=== PATIENT | female | born 1985 | race Caucasian/White ===

== ENCOUNTER 2019-02-02 19:24 | Observation (INO) | payer MEDICAID ==
[~2019-02-02] VITALS: Ht 152.4 cm; Wt 68.0 kg
[2019-02-02] MEDS ORDERED: LACTATED RINGERS 1,000 ML IV NR ×2 (20:01→20:30)
[2019-02-02 20:18] LABS: CLARITY URINE CLOUDY (CLEAR); COLOR URINE YELLOW (YELLOW); KETONES URINE NEGATIVE (NEGATIVE); LEUKOCYTE ESTERASE URINE TRACE (NEGATIVE); NITRITE URINE NEGATIVE (NEGATIVE); OCCULT BLOOD URINE NEGATIVE (NEGATIVE); PH URINE 5.5 (4.5-8.0); PROTEIN URINE TRACE (NEGATIVE); SPECIFIC GRAVITY URINE 1.028 (1.005-1.030); UROBILINOGEN URINE 0.2 E.U./dL (0.2-1.0)
[2019-02-02 22:11] LABS: BASOPHILS % 0.3 % (0.0-2.0); EOSINOPHILS % 1.5 % (0.0-5.0); HEMOGLOBIN. 10.5 g/dL (12.0-16.0); LYMPHOCYTES % 20.7 % (20.0-50.0); MEAN CORPUSCULAR HEMOGLOBIN 28.7 pg (28.0-32.0); MEAN CORPUSCULAR VOLUME 87.7 fL (81.0-99.0); MEAN PLATELET VOLUME 7.3 fl (7.4-10.4); MONOCYTES % 7.3 % (2.0-8.0); NEUTROPHILS % 70.2 % (40.0-76.0); PLATELET 338 x1000/uL (130-400); RED BLOOD CELL COUNT 3.64 mill/uL (4.2-5.4); RED CELL DISTRIBUTION WIDTH 13.5 % (11.6-14.6)
[2019-02-03] MEDS ORDERED: ACETAMINOPHEN 325MG TABLET PO NR
== END 2019-02-03 00:15 | disposition home or self-care (01) ==
LOC: 8 EST LDRP 19:24
PROVIDERS: ADMIT Obstetrics & Gynecology; ATTEND Obstetrics & Gynecology
DX: O26.892 Other specified pregnancy related conditions, second trimester (principal); R10.30 Lower abdominal pain, unspecified; M54.9 Dorsalgia, unspecified; Z3A.25 25 weeks gestation of pregnancy
CPT/HCPCS: 36415; 76805; 81003; 85025; G0378; 96360; 96361

== ENCOUNTER 2019-04-06 14:57 | Observation (INO) | payer MEDICAID ==
[~2019-04-06] VITALS: Ht 152.4 cm; Wt 72.6 kg
[2019-04-06] MEDS ORDERED: DEXT 5%/LACTATED RINGERS 1,000 ML IV SCH (15:45)
[2019-04-06 15:53] LABS: CLARITY URINE CLEAR (CLEAR); COLOR URINE YELLOW (YELLOW); KETONES URINE NEGATIVE (NEGATIVE); LEUKOCYTE ESTERASE URINE TRACE (NEGATIVE); NITRITE URINE NEGATIVE (NEGATIVE); OCCULT BLOOD URINE NEGATIVE (NEGATIVE); PROTEIN URINE TRACE (NEGATIVE)
[2019-04-06] MEDS ORDERED: CEFAZOLIN 2,000 MG in DEXT 5% WATER 100 ML IV NR (17:30)
== END 2019-04-06 18:20 | disposition home or self-care (01) ==
LOC: 8 EST LDRP 14:57
PROVIDERS: ADMIT Obstetrics & Gynecology; ATTEND Obstetrics & Gynecology
DX: O26.893 Other specified pregnancy related conditions, third trimester (principal); R10.9 Unspecified abdominal pain; Z3A.34 34 weeks gestation of pregnancy
CPT/HCPCS: 81003; 82731; G0378; J0690; J7060; 96360; 96361; 96365; 99281

== ENCOUNTER 2019-04-29 22:44 | Observation (INO) | payer OTHER ==
[~2019-04-29] VITALS: Ht 152.4 cm; Wt 75.7 kg
[2019-04-29] MEDS ORDERED: LACTATED RINGERS 1,000 ML IV SCH ×2 (23:08→23:30)
[2019-04-29] MEDS ORDERED: ONDANSETRON HCL 4MG/2ML INJ IV NR (23:15)
[2019-04-29] MEDS ORDERED: ACETAMINOPHEN 500MG TABLET PO NR (23:45)
[2019-04-30 00:32] LABS: BASOPHILS % 0.2 % (0.0-2.0); EOSINOPHILS % 1.5 % (0.0-5.0); HEMATOCRIT. 33.7 % (36.0-48.0); LYMPHOCYTES % 27.3 % (20.0-50.0); MEAN CORPUSCULAR VOLUME 85.5 fL (81.0-99.0); MEAN PLATELET VOLUME 8.2 fl (7.4-10.4); MONOCYTES % 8.6 % (2.0-8.0); NEUTROPHILS % 62.4 % (40.0-76.0); PLATELET 296 x1000/uL (130-400); RED BLOOD CELL COUNT 3.94 mill/uL (4.2-5.4)
[2019-04-30 00:38] LABS: CHLORIDE 109 mEq/L (98-107)
[2019-04-30 01:19] LABS: CLARITY URINE CLOUDY (CLEAR); COLOR URINE YELLOW (YELLOW); KETONES URINE NEGATIVE (NEGATIVE); LEUKOCYTE ESTERASE URINE 2+ (NEGATIVE); NITRITE URINE NEGATIVE (NEGATIVE); OCCULT BLOOD URINE NEGATIVE (NEGATIVE); PROTEIN URINE 1+ (NEGATIVE)
[2019-04-30] MEDS ORDERED: CEFAZOLIN 2,000 MG in DEXT 5% WATER 100 ML IV SCH (02:30)
[2019-04-30] MEDS ORDERED: BUTORPHANOL TARTRATE 2 MG/ML VIAL IM PRN (07:30)
[2019-04-30 08:43] VITALS: BP 125/72
[2019-04-30] MEDS ORDERED: PNV11TAB MT (10:06)
== END 2019-04-30 10:15 | disposition home or self-care (01) ==
LOC: 8 EST LDRP 22:44
PROVIDERS: ADMIT Obstetrics & Gynecology; ATTEND Obstetrics & Gynecology
DX: O62.9 Abnormality of forces of labor, unspecified (principal); O26.893 Other specified pregnancy related conditions, third trimester; M54.9 Dorsalgia, unspecified; Z3A.37 37 weeks gestation of pregnancy
CPT/HCPCS: 36415; 76805; 76818; 80053; 81003; 85025; 96365; 96372; 96375; 99281; G0378; J0595; J0690; J2405; J7060; J7120

== ENCOUNTER 2019-05-05 14:23 | Observation (INO) | payer OTHER ==
[~2019-05-05] VITALS: Ht 152.4 cm; Wt 75.7 kg
[~2019-05-05 14:23] MED LIST: PNV11TAB MT
[2019-05-05] MEDS ORDERED: FOLI0.4T2 PO (15:09)
[2019-05-05] MEDS ORDERED: FERR325T6 PO (15:09)
== END 2019-05-05 16:30 | disposition home or self-care (01) ==
LOC: 8 EST LDRP 14:23 → OBSVTOIN 14:23 → INTOOBSV 14:23 → 8 EST LDRP 14:30
PROVIDERS: ADMIT Obstetrics & Gynecology; ATTEND Obstetrics & Gynecology
DX: O62.9 Abnormality of forces of labor, unspecified (principal); O46.93 Antepartum hemorrhage, unspecified, third trimester; Z3A.39 39 weeks gestation of pregnancy
CPT/HCPCS: 99281; G0378

== ENCOUNTER 2019-05-06 02:17 | Inpatient (IN) | payer OTHER ==
[~2019-05-06] VITALS: Ht 152.4 cm; Wt 76.2 kg
[~2019-05-06 02:17] MED LIST changes: +FERR325T6 PO; +FOLI0.4T2 PO
[2019-05-06] MEDS ORDERED: LACTATED RINGERS 1,000 ML IV SCH (03:47)
[2019-05-06] MEDS ORDERED: AMPICILLIN 2,000 MG in SODIUM CHLORIDE 0.9% 100 ML IV SCH (04:00)
[2019-05-06] MEDS: BUTORPHANOL TARTRATE 2 MG/ML VIAL IV PRN ×2 (04:36→06:36)
[2019-05-06 04:58] LABS: CLARITY URINE CLOUDY (CLEAR); COLOR URINE YELLOW (YELLOW); KETONES URINE NEGATIVE (NEGATIVE); LEUKOCYTE ESTERASE URINE 2+ (NEGATIVE); NITRITE URINE NEGATIVE (NEGATIVE); OCCULT BLOOD URINE 3+ (NEGATIVE); PH URINE 6.5 (4.5-8.0); PROTEIN URINE 1+ (NEGATIVE); SPECIFIC GRAVITY URINE 1.012 (1.005-1.030); UROBILINOGEN URINE 0.2 E.U./dL (0.2-1.0)
[2019-05-06 04:59] LABS: BASOPHILS % 0.2 % (0.0-2.0); EOSINOPHILS % 0.9 % (0.0-5.0); HEMATOCRIT. 36.2 % (36.0-48.0); HEMOGLOBIN. 11.8 g/dL (12.0-16.0); MEAN CORPUSCULAR HEMOGLOBIN 27.7 pg (28.0-32.0); MEAN PLATELET VOLUME 8.2 fl (7.4-10.4); MONOCYTES % 6.8 % (2.0-8.0); NEUTROPHILS % 66.1 % (40.0-76.0); PLATELET 328 x1000/uL (130-400); RED BLOOD CELL COUNT 4.25 mill/uL (4.2-5.4); RED CELL DISTRIBUTION WIDTH 14.7 % (11.6-14.6)
[2019-05-06 05:06] LABS: INR 0.9; PARTIAL THROMBOPLASTIN TIME 28.5 sec (23.4-31.0); PROTHROMBIN TIME 9.7 sec (9.6-11.0)
[2019-05-06 05:30] LABS: *AMPHETAMINES SCREEN URINE NEGATIVE (NEGATIVE); *BARBITURATES SCREEN URINE NEGATIVE (NEGATIVE); *BENZODIAZEPINES SCREEN URINE NEGATIVE (NEGATIVE)
[2019-05-06 05:31] LABS: *COCAINE SCREEN URINE NEGATIVE (NEGATIVE); CANNABINOID URINE SCREEN NEGATIVE (NEGATIVE); METHADONE URINE SCREEN NEGATIVE (NEGATIVE); OPIATES URINE SCREEN NEGATIVE (NEGATIVE); PHENCYCLIDINE URINE SCREEN NEGATIVE (NEGATIVE)
[2019-05-06] MEDS ORDERED: DEXT 5%/LR + PITOCIN 20UNITS/L 1,000 ML IV SCH ×2 (07:08→07:34)
[2019-05-06] MEDS ORDERED: NALOXONE HCL 0.4 MG/ML 1ML VIAL IM PRN (07:15)
[2019-05-06] MEDS ORDERED: METHYLERGONOVINE MALEATE 0.2 MG/ML IM PRN (07:15)
[2019-05-06] MEDS ORDERED: LIDOCAINE HCL 1% 20ML VIAL (Pyxis) INJ INFIL NR (07:15)
[2019-05-06] MEDS ORDERED: RHO(D) IMMUNE GLOBULIN 300 MCG/SYR IM PRN (07:45)
[2019-05-06] MEDS ORDERED: IBUPROFEN 400MG TABLET PO PRN (07:45)
[2019-05-06] MEDS ORDERED: MINERAL OIL 30ML BOTTLE PO SCH (08:00)
[2019-05-06] MEDS ORDERED: AMPICILLIN 1,000 MG in SODIUM CHLORIDE 0.9% 50 ML IV SCH (10:00)
[2019-05-06] MEDS: IBUPROFEN 800MG TABLET PO PRN (10:17)
[2019-05-06 12:00] VITALS: BP 135/70
[2019-05-06 16:00] VITALS: BP 141/78
[2019-05-06 20:50] VITALS: BP 119/77
[2019-05-07 01:00] VITALS: BP 132/69
[2019-05-07 08:00] VITALS: BP 130/72
[2019-05-07] MEDS ORDERED: FENTANYL CITRATE/PF 50MCG/ML 2ML VIAL ONE (11:00)
[2019-05-07] MEDS ORDERED: EPHEDRINE SULFATE 50MG/ML VIAL ONE (11:00)
[2019-05-07] MEDS ORDERED: SODIUM CHLORIDE 0.9% 10ML VIAL ONE ×2 (11:00→11:42)
[2019-05-07] MEDS ORDERED: MIDAZOLAM HCL 2 MG/2 ML VIAL ONE ×2 (11:20→11:42)
[2019-05-07] MEDS ORDERED: DIPHENHYDRAMINE 50MG/ML VIAL ONE (11:41)
[2019-05-07] MEDS ORDERED: CEFAZOLIN SODIUM 1000MG/VIAL ONE (11:42)
[2019-05-07] MEDS ORDERED: KETOROLAC 60MG/2ML VIAL IM ONE (12:18)
[2019-05-07] MEDS ORDERED: BUTORPHANOL TARTRATE 2 MG/ML VIAL IM PRN (12:30)
[2019-05-07 15:30] VITALS: BP 126/78
[2019-05-07] MEDS: IBUPROFEN 800MG TABLET PO PRN ×2 (16:24→23:35)
[2019-05-07 19:30] VITALS: BP 104/69
[2019-05-07 23:35] VITALS: BP 127/69
[2019-05-08] MEDS ORDERED: IBUP-2030 MT (07:24)
[2019-05-08 07:40] VITALS: BP 144/78
[2019-05-08] MEDS: IBUPROFEN 800MG TABLET PO PRN (09:01)
== END 2019-05-08 10:00 | disposition home or self-care (01) | DRG 541 ==
LOC: OBSVTOIN 02:17 → 8 EST LDRP 02:17 → UNDODISIN 11:30 → 8EST 14:37
PROVIDERS: ADMIT Obstetrics & Gynecology; ATTEND Obstetrics & Gynecology
PROC: 10E0XZZ Delivery of Products of Conception, External Approach (ICD-10-PCS; principal; 2019-05-07)
PROC: 0UB70ZZ Excision of Bilateral Fallopian Tubes, Open Approach (ICD-10-PCS; 2019-05-07)
DX: O80 Encounter for full-term uncomplicated delivery (principal); Z30.2 Encounter for sterilization; Z37.0 Single live birth; Z3A.39 39 weeks gestation of pregnancy
CPT/HCPCS: 36415; 80305; 81003; 86592; 86703; 86762; 86850; 86900; 87340; 88302; 99281; J0290; J0595; J0690; J1200; J1885; J2250; J2310; J2590; J3010; J3490; J7050; J7120